=== PATIENT | female | born 1980 | race Caucasian/White ===

== ENCOUNTER 2021-03-08 13:10 | Emergency (ER) | payer OTHER ==
[~2021-03-08] VITALS: Ht 160 cm; Wt 86.2 kg
[~2021-03-08 13:10] MED LIST: FLEXERIL PO; IBUPROFEN 800800 M1 PO; MECLIZINE HCL25 M1 PO; METFORMIN 500500 MG PO; ULTRAM 50MG TAB50 MG PO
--- NOTE | 2021-03-08 13:56 | EKG ---
[place] [address] ELECTROCARDIOGRAM REPORT Name: JASPREET ELAM Room: [facility]#: [id number] Admission: Attend Phys: Discharge: Date of : 84 Date of Service: 03/08/21 1318 Report #: [id number] THIS REPORT FOR: //name// [facility] ED Test Date: 2021-03-08 Test Time: 13:18:12 Pat Name: JASPREET ELAM Department: Room: Gender: F Softball Coach: : 1980 Requested By: Syed Enriquez Order Number: [id number] MD: Fish Vasquez Measurements Intervals [place] Rate: 80 P: 32 MS: 146 QRS: -2 QRSD: 89 T: -86 QT: 385 QTc: 445 Interpretive Statements Sinus rhythm LVH with secondary repolarization abnormality Probable anterior infarct, age indeterminate Compared to ECG 02/22/2014 10:35:20 Left ventricular hypertrophy now present Early repolarization now present Myocardial infarct finding now present Electronically Signed On 03-08-2021 13:56:28 [employer] SALES REPRESENTATIVE by Fish Vasquez [email or web address] <ELECTRONICALLY SIGNED> By: Fish Vasquez MD, FAC 03/08/21 1356 1318 1318 Fish Vasquez MD, [facility] /EPI
[2021-03-08 14:43] VITALS: BP 187/120
== END 2021-03-08 14:46 | disposition left against medical advice (07) ==
LOC: M.ERS 13:10
DX: R51.9 Headache, unspecified (principal); F12.90 Cannabis use, unspecified, uncomplicated; Z98.890 Other specified postprocedural states; Z88.1 Allergy status to other antibiotic agents